=== PATIENT | male | born 1960 ===

== ENCOUNTER → 2018-02-25 | Outpatient (CLI) | payer OTHER | LOC: CIMAGING 11:05 | DX: R49.8 Other voice and resonance disorders (principal); M50.91 Cervical disc disorder, unspecified, high cervical region; M50.921 Unspecified cervical disc disorder at C4-C5 level; M50.922 Unspecified cervical disc disorder at C5-C6 level; M50.923 Unspecified cervical disc disorder at C6-C7 level; M51.84 Other intervertebral disc disorders, thoracic region | CPT/HCPCS: 70490-PO ==